=== PATIENT | male | born 2000 | race Caucasian/White ===

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

== ENCOUNTER 2023-05-24 12:04 | Emergency (ER) | payer OTHER ==
[~2023-05-24] VITALS: Ht 180.3 cm; Wt 124.3 kg
[2023-05-24 12:15] VITALS: BP 157/83; PULSE 91; RESP 20; TEMP 98.7; O2SAT 98
[2023-05-24] MEDS ORDERED: KETOROLAC 30 MG/ML VIAL IM ONE (13:50)
[2023-05-24] MEDS ORDERED: KETOROLAC 30 MG/ML VIAL ONE (14:58)
[2023-05-24] MEDS ORDERED: NAPR-54 PO (15:03)
[2023-05-24 15:32] VITALS: BP 157/83; PULSE 91; RESP 20; TEMP 98.7; O2SAT 98
== END 2023-05-24 15:32 | disposition home or self-care (01) ==
LOC: MED 12:04
DX: M25.531 Pain in right wrist (principal); M25.512 Pain in left shoulder; R07.89 Other chest pain; Z79.1 Long term (current) use of non-steroidal anti-inflammatories (NSAID); V89.2XXA Person injured in unspecified motor-vehicle accident, traffic, initial encounter; Y93.89 Activity, other specified; Y92.410 Unspecified street and highway as the place of occurrence of the external cause; Y99.8 Other external cause status
CPT/HCPCS: 29125; 71045; 73110; 96372; 99284; J1885